=== PATIENT | male | born 1975 | race Caucasian/White ===

== ENCOUNTER 2023-10-03 06:55 | Emergency (ER) | payer OTHER, SELFPAY ==
[2023-10-03 06:57] VITALS: BP 138/86
[2023-10-03] MEDS: ADACEL 0.5 ML IM (07:36)
--- NOTE | 2023-10-03 07:39 | ED.SKININJ ---
HPI-Injury
General
Chief Complaint: Skin Surface Trauma
Source: patient
Time Seen by Provider: 10/03/23 07:10
History of Present Illness-Injury
Initial Injury comments:
48yo right hand dominant male presenting for evaluation of a left hand laceration that was sustained less than an hour prior to arrival. Patient was using a pocket knife to cut something when he accidentally slipped and cut his left hand. He cleaned
the wound with water prior to arrival. Bleeding controlled on arrival. He denies any paresthesias. Unknown last Tdap.
Past History
Past History
ED Past Medical History: None
ED Past Surgical History: None
Social History
Tobacco: Non-smoker
Living: with family
Phy Exam
Physical Exam
Physical Exam:
Left hand: 1cm laceration present to the dorsum of the hand in the webbed space in between thumb and index finger. Mild gaping in center. No active bleeding. No FB. ROM of DIP, PIP, and MCP joints intact. No bony tenderness. Sensation normal. 2+
radial pulse.
General Physical Exam
General Presentation: well appearing and no apparent distress
General age: appears stated age
General Skin: warm and dry
General Habitus: normal
Course
Orders/Labs/Results
Orders:
Orders
10/03/23 07:17
Tetanus/Diphth/Acelpertussis [Adacel] 0.5 ml IM .ONCE ONE
Vital Signs
Initial and Last Documented VS:
Initial Vital Signs
Temp Pulse Resp BP Pulse Ox
97.8 F 75 16 138/86 95
10/03/23 06:57 10/03/23 06:57 10/03/23 06:57 10/03/23 06:57 10/03/23 06:57
Last Documented Vital Signs
Temp Pulse Resp BP Pulse Ox
97.8 F 75 16 138/86 95
10/03/23 06:57 10/03/23 06:57 10/03/23 06:57 10/03/23 06:57 10/03/23 06:57
Procedures
Laceration Closure
Left Dorsal Hand:
Status of Wound: clean
Size of Wound in cm: 1
Description of Wound Edges: sharp
Preparation: cleaned with saline and cleaned with Betadine
Anesthesia: 1% Lidocaine with epi
Wound exploration: explored to base- no FB
Type of Closure: single layer closure and interrupted sutures
Skin Closure Material: 4-0 nylon
Number of sutures: 2
MDM/Problems Addressed
Differential Diagnosis Includes:
48yoM here with a L hand laceration after accidentally cutting himself with a pocket knife. 1cm laceration noted on exam. No bony tenderness and ROM intact. L hand is neurovascularly intact. Wound was cleaned and repaired as above. Patient tolerated
well. Tdap updated. Home wound care discussed. Advised f/u with PCP or return to the ED in 10 days for suture removal or sooner with any signs of infection.
*Critical Care Note
Total Time (30-74mins, 75-104mins- exclusive of procedures): Not Applicable
ED Attending Note
-
Portions of this chart may have been created with voice recognition software.� Occasional wrong word or��sound alike� substitutions may have occurred due to the inherent limitations of voice recognition software.
Discharge Plan
Departure
Patient Disposition: Home (Routine Discharge)
Date of Disposition: 10/03/23
Time of Disposition: 07:41
Patient with high blood pressure during this ER visit?: No
Discharge Problem:
Laceration of left hand
Instructions: Laceration Repair With Stitches (DC)
Prescriptions:
No Action
No Current Medications
Referrals:
Guillermo Trevino DO [Family Provider] -
Activity Restrictions/Additional Instructions:
Keep wound clean and dry. Change dressings daily.
Sutures need to be removed in 10 days. Return to the ER with any signs of infection (redness, warmth, drainage, fevers).
Interventions
Interventions:
*Nursing Disposition Last Done: 10/03/23 07:52
ED-Skin Assessment Last Done: 10/03/23 07:32
Discharge Date and Time
Discharge Date/Time: 10/03/23 07:53
Print Language: SWEDISH
== END 2023-10-03 07:53 | disposition home or self-care (01) ==
LOC: EMR 06:55
PROVIDERS: EMERGENCY PHYSICIAN Emergency Medicine; FAMILY PHYSICIAN Family Medicine
DX: S61.412A Laceration without foreign body of left hand, initial encounter (principal); W26.0XXA Contact with knife, initial encounter; Z23 Encounter for immunization
CPT/HCPCS: 12041; 99282; 90471; 90715